=== PATIENT | female | born 1940 | race Caucasian/White ===

== ENCOUNTER 2018-10-01 13:50 | Emergency (ER) | payer MEDICARE, BC ==
[2018-10-01 15:13] LABS: BASOPHILS % (AUTO) 1 % (0-3); EOSINOPHILS % (AUTO) 0 % (0-9); HEMATOCRIT 36 % (35-47); HEMOGLOBIN 11.7 gm/dl (12.0-15.5); LYMPHOCYTES % (AUTO) 5.4 % (10-50); MEAN CORPUSCULAR HEMOGLOBIN 29.3 pg (27.0-32.0); MEAN CORPUSCULAR HGB CONC 32.7 gm/dl (32.0-36.0); MEAN CORPUSCULAR VOLUME 90 fL (81-99); MONOCYTES % (AUTO) 4.1 % (0-12); NEUTROPHILS % (AUTO) 89.9 % (37-80)
[2018-10-01 15:15] LABS: CARBON DIOXIDE 30.7 mEq/L (21-32); CREATININE 0.68 mg/dl (0.60-1.00); INR 1.01 (0.86-1.12)
[2018-10-01] MEDS ORDERED: LEVETIRACETAM 250 MG TAB PO ONE (15:32)
[2018-10-01 15:52] LABS: APPEARANCE,URINE Clear; BILIRUBIN,URINE NEGATIVE (NEGATIVE); COLOR,URINE Yellow; GLUCOSE, URINE (UA) NEGATIVE (NEGATIVE); KETONES,URINE NEGATIVE (NEGATIVE); LEUKOCYTE ESTERASE ,URINE TRACE (NEGATIVE); NITRATE,URINE NEGATIVE (NEGATIVE); OCCULT BLOOD,URINE NEGATIVE (NEG-TRACE); UROBILINOGEN,URINE 0.2 (0.2-1.0 EU)
[2018-10-01] MEDS ORDERED: LEVETIRACETAM 250 MG TAB ONE (15:53)
[2018-10-01 15:58] VITALS: TEMP 98.1
[2018-10-01 16:00] LABS: RBC,URINE NEG (0-3AV/HPF); WBC,URINE 0-1 (0-5AV/HPF)
[2018-10-01 16:01] LABS: BACTERIA NEGATIVE (< 1+); CRYSTALS NEGATIVE (0-3 AVE/HPF); EPITHELIAL CELLS 0-3 (SQUAMOUS)
[2018-10-01 16:02] VITALS: RESP 16
[2018-10-01] MEDS ORDERED: HYDROMORPHONE 1 MG/ML SYRINGE IV PRN (16:12)
[2018-10-01] MEDS ORDERED: HYDROMORPHONE 1 MG/ML SYRINGE ONE (16:15)
[2018-10-01] MEDS ORDERED: SODIUM CHLORIDE 0.9% 1000ML 1,000 ML IV ONE (16:41)
[2018-10-01 16:51] VITALS: BP 130/64; PULSE 86; O2SAT 96
== END 2018-10-01 16:55 | disposition short-term general hospital (02) | DRG 965 ==
LOC: ED 13:50
DX: S72.402A Unspecified fracture of lower end of left femur, initial encounter for closed fracture (principal); S32.599A Other specified fracture of unspecified pubis, initial encounter for closed fracture; W07.XXXA Fall from chair, initial encounter; Y92.129 Unspecified place in nursing home as the place of occurrence of the external cause
CPT/HCPCS: 36415; 71045; 80048; 81001; 85025; 85610; 96374; 99284; 99285; G0390; A9270-GY; J1170